=== PATIENT | female | born 1990 | race Caucasian/White ===

== ENCOUNTER 2024-07-31 14:52 | Outpatient (CLI) | payer MEDICAID, SELFPAY ==
--- NOTE | 2024-07-31 14:53 | US_ITS ---
FINAL REPORT CLINICAL HISTORY: umbilical hernia COMPARISON: None FINDINGS: ULTRASOUND ABDOMEN The liver is unremarkable. Spleen has a normal sonographic appearance. No abnormality of the gallbladder is seen. No biliary ductal dilatation is identified. Kidneys show no evidence of mass or obstruction. Pancreas is not well visualized. IVC and aorta are grossly unremarkable. There is no obvious fluid collection. There are 2 small periumbilical hernias, both appear to measure less than 1 cm and contain omental fat. The larger hernia sac measures up to 2 cm. IMPRESSION: Intra-abdominal solid organs are unremarkable. Small umbilical hernias. Reviewed, Interpreted and Dictated by Jose R Dotson MD Transcribed by Kimberly Lewis Authenticated and [facility]
== END 2024-07-31 23:59 | disposition home or self-care (01) ==
LOC: RAD 14:53
PROVIDERS: PCP Student in an Organized Health Care Education/Training Program; Visit Provider Student in an Organized Health Care Education/Training Program
DX: K42.9 Umbilical hernia without obstruction or gangrene (principal)
CPT/HCPCS: 76700

== ENCOUNTER 2024-09-20 14:10 | Outpatient (CLI) | payer MEDICAID, SELFPAY ==
[2024-09-20 18:21] LABS: Basophils # 0.1 K/mm3 (0-0.2); Basophils % 1.5 % (0.1-2.0); Eosinophils # 0.7 K/mm3 (0.0-0.4); Hematocrit 42.5 % (37.0-47.0); Hemoglobin 13.9 g/dL (12.2-16.2); Lymphocytes # 2.8 K/mm3 (0.7-4.5); Lymphocytes % 41.4 % (10-50); Mean Corpuscular HGB Conc 32.7 g/dL (31.8-35.4); Mean Corpuscular Hemoglobin 29.4 pg (27.0-31.2); Mean Corpuscular Volume 89.9 fl (81-99); Mean Platelet Volume 11.1 fl (7.4-10.4); Monocytes # 0.5 K/mm3 (0.1-1.0); Monocytes % 7.7 % (1.7-9.3); Neutrophils # 2.7 K/mm3 (1.8-7.8); Neutrophils % 39.1 % (37.0-80.0); Nucleated Red Blood Cells # 0 10^3/uL; Nucleated Red Blood Cells % 0 %; Platelet Count 335 K/mm3 (142-424); Red Blood Count 4.73 M/mm3 (4.20-5.40); Red Cell Distribution Width-SD 45.8 fL; White Blood Count 6.8 K/mm3 (4.8-10.8)
[2024-09-20 19:18] LABS: Chloride 104 mmol/L (98-107)
[2024-09-20 19:19] LABS: Albumin Level 4.1 g/dl (3.5-5.0); Potassium 4.2 mmoL/L (3.5-5.1); Sodium 139 mmol/L (136-145)
[2024-09-20 19:21] LABS: Blood Urea Nitrogen 6 mg/dl (7-17); Estimated Glomerular Filt Rate 113 ml/min (>60); GFR (African American) 137 ML/MIN (>60)
[2024-09-20 19:22] LABS: Alanine Aminotransferase 13 U/L (12-78); Albumin/Globulin Ratio 1.5 (1.1-1.8); Alkaline Phosphatase 76 U/L (38-126); Anion Gap 12.2 mEq/L (5-15); Aspartate Amino Transferase 23 U/L (14-36); Bilirubin,Total 0.5 mg/dl (0.2-1.3); Calcium 9.2 mg/dl (8.4-10.2); Carbon Dioxide 27 mmol/L (22.0-30.0); Chol/HDL Ratio 2.9 (1-3.5); Cholesterol 177 mg/dl (140-200); Globulin 2.8 g/dL (1.3-3.2); Glucose 99 mg/dl (74-100); HDL Cholesterol 62 mg/dl (40-60); Total Protein,Serum 6.9 g/dl (6.3-8.2); Triglycerides 112 mg/dl (30-150); VLDL Cholesterol 22 mg/dL (0-40)
[2024-09-20 19:33] LABS: Direct LDL Cholesterol 96.08 mg/dL (100-129)
[2024-09-20 19:52] LABS: Thyroid Stimulating Hormone 1.62 uIU/mL (0.465-4.68)
[2024-09-20 20:00] LABS: HIV Combo NEGATIVE (Negative)
[2024-09-20 20:11] LABS: Hepatitis C Ab Qual. W/ RFX NEGATIVE (Negative)
== END 2024-09-20 23:59 | disposition home or self-care (01) ==
LOC: LAB.DROPOF 09-21 09:40
PROVIDERS: PCP Family Medicine; Visit Provider Family Medicine
DX: K42.9 Umbilical hernia without obstruction or gangrene (principal); N23 Unspecified renal colic; D69.0 Allergic purpura; C53.9 Malignant neoplasm of cervix uteri, unspecified; Z87.442 Personal history of urinary calculi; Z11.59 Encounter for screening for other viral diseases
CPT/HCPCS: 80053; 80061; 82306; 84443; 85025; 86803; 87389

== ENCOUNTER 2024-11-29 14:52 | Outpatient (CLI) | payer MEDICAID, SELFPAY ==
[2024-11-29 15:41] LABS: Basophils # 0.2 K/mm3 (0-0.2); Eosinophils % 12.2 % (0.1-12.0); Hematocrit 41.2 % (37.0-47.0); Hemoglobin 14.2 g/dL (12.2-16.2); Immature Granulocytes # 0.02 10^3uL; Immature Granulocytes % 0.2 %; Lymphocytes # 3.1 K/mm3 (0.7-4.5); Lymphocytes % 37.7 % (10-50); Mean Corpuscular HGB Conc 34.5 g/dL (31.8-35.4); Mean Corpuscular Hemoglobin 29.8 pg (27.0-31.2); Mean Corpuscular Volume 86.6 fl (81-99); Mean Platelet Volume 10.6 fl (7.4-10.4); Monocytes # 0.6 K/mm3 (0.1-1.0); Monocytes % 7.8 % (1.7-9.3); Neutrophils # 3.3 K/mm3 (1.8-7.8); Neutrophils % 40.1 % (37.0-80.0); Nucleated Red Blood Cells # 0 10^3/uL; Nucleated Red Blood Cells % 0 %; Platelet Count 299 K/mm3 (142-424); Red Blood Count 4.76 M/mm3 (4.20-5.40); Red Cell Distribution Width 12.6 % (11.5-17.5); Red Cell Distribution Width-SD 39.9 fL; White Blood Count 8.2 K/mm3 (4.8-10.8)
[2024-11-29 16:10] LABS: Blood Urea Nitrogen 7 mg/dl (7-17); Calcium 9.9 mg/dl (8.4-10.2); Carbon Dioxide 25 mmol/L (22.0-30.0); Chloride 103 mmol/L (98-107); Estimated Glomerular Filt Rate 81 ml/min (>60); GFR (African American) 98 ML/MIN (>60); Glucose 68 mg/dl (74-100); Sodium 138 mmol/L (136-145)
== END 2024-11-29 23:59 | disposition home or self-care (01) ==
LOC: LAB 14:53
PROVIDERS: PCP Family Medicine; Visit Provider Surgery
DX: R10.9 Unspecified abdominal pain (principal)
CPT/HCPCS: 36415; 80048; 85025

== ENCOUNTER 2025-01-31 10:47 | Outpatient (CLI) | payer MEDICAID, SELFPAY ==
[2025-01-17 08:14] VITALS: BMI 21.6
[2025-01-31 07:31] VITALS: BMI 21.6
--- OUTSIDE RECORDS SUMMARY | 2025-01-31 10:52 | XMS_ITS | Clinical Summary ---
Author Organization [facility] Address [address] [place] [address] Phone Care Team Providers Care Finance Controller Name Role Phone Emily DOYLE, Regina Contreras Primary Care Physic kim Conditions or Problems Problem Name Problem Code Onset Date Status Entry Date Provider Comment Standard Description Annotate Body mass index (BMI) 24.0-24.9; adult Z68.24 (ICD-10-CM) Active Regina JEFFERSONM Body mass index [BMI] 24.0-24.9, adult Body mass index (BMI) 26.0-26.9; adult Z68.26 (ICD-10-CM) 12/21 Correction 12/21 Regina JEFFERSONM Body mass index [BMI] 26.0-26.9, adult Rh negative 712373334 (SNOMED CT) 09/13 Resolved 09/13 Regina [place] Emily CNM RhD negative Supervision high risk , second trimester 14473104 (SNOMED CT) 06/23 Resolved 06/27 Regina Servand[place]well [place] CNM High risk Vaginal discharge 294053213 (SNOMED CT) Active Regina Ben JEFFERSONM Vaginal discharge F/U Z39.2 (ICD-10-CM) 01/02 Active 01/02 Arlette Bradshaw MD Encounter for routine follow-up Body mass index (BMI) 26.0-26.9; adult Z68.26 (ICD-10-CM) 12/21 Removed 12/21 Regina Ben Diaz CNM Body mass index [BMI] 26.0-26.9, adult Body mass index (BMI) 26.0-26.9; adult Z68.26 (ICD-10-CM) 12/05 Correction 12/05 Regina Ben Diaz CNM Body mass index [BMI] 26.0-26.9, adult 36 weeks gestation of 33126529 (SNOMED CT) 12/05 Inactive 12/05 Arlette Bradshaw MD Gestation period, 36 weeks Body mass index (BMI) 26.0-26.9; adult Z68.26 (ICD-10-CM) 12/05 Removed 12/05 Arlette Bradshaw MD Body mass index [BMI] 26.0-26.9, adult Body mass index (BMI) 24.0-24.9; adult Z68.24 (ICD-10-CM) 11/01 Correction 11/01 Arlette Bradshaw MD Body mass index [BMI] 24.0-24.9, adult VAGINAL DISCHARGE 045550125 (SNOMED CT) 10/18 Resolved 10/18 Arlette Bradshaw MD Vaginal discharge 31 weeks gestation of 70382631 (SNOMED CT) 11/01 Inactive 11/01 Arlette Bradshaw MD Gestation period, 31 weeks Body mass index (BMI) 24.0-24.9; adult Z68.24 (ICD-10-CM) 11/01 Removed 11/01 Arlette Bradshaw MD Body mass index [BMI] 24.0-24.9, adult Body mass index (BMI) 24.0-24.9; adult Z68.24 (ICD-10-CM) 10/18 Correction 10/18 Arlette Brasdhaw MD Body mass index [BMI] 24.0-24.9, adult 29 weeks gestation of 32318154 (SNOMED CT) 10/18 Inactive 10/18 Arlette Bradshaw MD Gestation period, 29 weeks Body mass index (BMI) 24.0-24.9; adult Z68.24 (ICD-10-CM) 10/18 Removed 10/18 Arlette Bradshaw MD Body mass index [BMI] 24.0-24.9, adult Body mass index (BMI) 24.0-24.9; adult Z68.24 (ICD-10-CM) 10/11 Correction 10/11 Arlette Bradshaw MD Body mass index [BMI] 24.0-24.9, adult 24 weeks gestation of 480347998 (SNOMED CT) 09/13 Resolved 09/13 Arlette Bradshaw MD Gestation period, 24 weeks VAGINAL DISCHARGE 826371805 (SNOMED CT) 10/18 Removed 10/18 Arlette Bradshaw MD Vaginal discharge 28 weeks gestation of 23034074 (SNOMED CT) 10/11 Inactive 10/11 Arlette Bradshaw MD Gestation period, 28 weeks Body mass index (BMI) 24.0-24.9; adult Z68.24 (ICD-10-CM) 10/11 Removed 10/11 Arlette Bradshaw MD Body mass index [BMI] 24.0-24.9, adult Back pain 694205381 (SNOMED CT) 10/11 Active 10/11 Arlette Bradshaw MD Backache Body mass index (BMI) 24.0-24.9; adult Z68.24 (ICD-10-CM) 10/11 Correction 10/11 Arlette Bradshaw MD Body mass index [BMI] 24.0-24.9, adult Body mass index (BMI) 24.0-24.9; adult Z68.24 (ICD-10-CM) 10/11 Removed 10/11 Arlette Bradshaw MD Body mass index [BMI] 24.0-24.9, adult Body mass index (BMI) 23.0-23.9; adult Z68.23 (ICD-10-CM) 09/13 Correction 09/14 Arlette Bradshaw MD Body mass index [BMI] 23.0-23.9, adult Body mass index (BMI) 23.0-23.9; adult Z68.23 (ICD-10-CM) 09/13 Removed 09/14 Andrea Wright MD Body mass index [BMI] 23.0-23.9, adult Body mass index (BMI) 23.0-23.9; adult Z68.23 (ICD-10-CM) 09/13 Correction 09/13 Andrea Wright MD Body mass index [BMI] 23.0-23.9, adult Pelvic pain 03847901 (SNOMED CT) 02/19 Resolved 02/19 Andrea Wright MD Pain in pelvis Amenorrhea, secondary 69686531 (SNOMED CT) 07/16 Resolved 07/16 Andrea Wright MD Secondary physiologic amenorrhea Weight loss abnormal 855511566 (SNOMED CT) 07/16 Resolved 07/16 Andrea Wright MD Abnormal weight loss 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 609166518 (SNOMED CT) 08/12 Resolved 08/12 Andrea Wright MD Cervical intraepithelia l neoplasia grade III with severe dysplasia Abdominal pain, right upper quadrant 452463542 (SNOMED CT) 08/12 Resolved 08/12 Andrea Wright MD Right upper quadrant pain Dyspareunia 89937677 (SNOMED CT) 08/12 Resolved 08/12 Andrea Wright MD Dyspareunia Dysuria 21841002 (SNOMED CT) 10/26 Resolved 10/26 Andrea Wright MD Dysuria Amenorrhea 07187387 (SNOMED CT) 06/23 Inactive 06/23 Andrea Wright MD Amenorrhea 12 weeks gestation of 18555846 (SNOMED CT) 06/23 Resolved 06/23 Andrea Wright MD Gestation period, 12 weeks Encounter for screening for malformatio ns 622505350 (SNOMED CT) 08/07 Inactive 08/07 Andrea Wright MD screening 24 weeks gestation of 199372941 (SNOMED CT) 09/13 Removed 09/13 Andrea Wright MD Gestation period, 24 weeks Body mass index (BMI) 23.0-23.9; adult Z68.23 (ICD-10-CM) 09/13 Removed 09/13 Andrea Wright MD Body mass index [BMI] 23.0-23.9, adult Body mass index (BMI) 22.0-22.9; adult Z68.22 (ICD-10-CM) 08/16 Correction 08/16 Andrea Wright MD Body mass index [BMI] 22.0-22.9, adult IgA nephropathy 937665321 (SNOMED CT) 09/13 Active 09/13 Andrea Wright MD IgA nephropathy Rh negative 162895730 (SNOMED CT) 09/13 Removed 09/13 Andrea Wright MD RhD negative Rh factor negative, antepartum, second trimester 393345704 (SNOMED CT) 09/13 Active 09/13 Andrea Wright MD Rhesus isoimmunizatio n with problem Body mass index (BMI) 22.0-22.9; adult Z68.22 (ICD-10-CM) 08/16 Removed 08/16 Yung Garcias APRN Body mass index [BMI] 22.0-22.9, adult Body mass index (BMI) 22.0-22.9; adult Z68.22 (ICD-10-CM) 08/07 Correction 08/07 Yung Garcias APRN Body mass index [BMI] 22.0-22.9, adult Allergic rhinitis 98216461 (SNOMED CT) 08/16 Active 08/16 Yung Garcias APRN Allergic rhinitis Body mass index (BMI) 22.0-22.9; adult Z68.22 (ICD-10-CM) 08/07 Removed 08/07 Regina Diaz CNM Body mass index [BMI] 22.0-22.9, adult Body mass index (BMI) 21.0-21.9; adult Z68.21 (ICD-10-CM) 06/23 Correction 06/26 Regina Diaz CNM Body mass index [BMI] 21.0-21.9, adult Encounter for screening for malformatio ns 859938877 (SNOMED CT) 08/07 Removed 08/07 Regina Diaz CNM screening Supervision high risk , second trimester 93849118 (SNOMED CT) 06/23 Removed 06/27 Andrea Wright MD High risk Body mass index (BMI) 21.0-21.9; adult Z68.21 (ICD-10-CM) 06/23 Removed 06/26 Andrea Wright MD Body mass index [BMI] 21.0-21.9, adult Body mass index (BMI) 21.0-21.9; adult Z68.21 (ICD-10-CM) 06/23 Correction 06/23 Andrea Wright MD Body mass index [BMI] 21.0-21.9, adult Body mass index (BMI) 21.0-21.9; adult Z68.21 (ICD-10-CM) 06/23 Removed 06/23 Andrea Wright MD Body mass index [BMI] 21.0-21.9, adult Body mass index (BMI) 19 or less; adult Z68.1 (ICD-10-CM) 06/16 Correction 06/16 Andrea Wright MD Body mass index [BMI] 19.9 or less, adult 12 weeks gestation of 57841090 (SNOMED CT) 06/23 Removed 06/23 Andrea Wright MD Gestation period, 12 weeks Amenorrhea 04056587 (SNOMED CT) 06/23 Removed 06/23 Kimberly Brown RN Amenorrhea Practice Managers well woman exam 394601421 (SNOMED CT) 10/26 Inactive 10/26 Deysi Flynn APRN Well woman health examination Dysuria 09341894 (SNOMED CT) 10/26 Removed 10/26 Deysi Flynn APRN Dysuria Body mass index (BMI) 19 or less; adult Z68.1 (ICD-10-CM) 06/16 Removed 06/16 Jennifer Skinner APRN Body mass index [BMI] 19.9 or less, adult Body mass index (BMI) 19 or less; adult Z68.1 (ICD-10-CM) 09/29 Correction 09/30 Jennifer Susanne SENIOR NET ARCHITECT Body mass index [BMI] 19.9 or less, adult URI - viral 281312165 (SNOMED CT) 06/16 Inactive 06/16 Jennifer Skinner SENIOR NET ARCHITECT Viral upper respiratory tract infection Body mass index (BMI) 19 or less; adult Z68.1 (ICD-10-CM) 09/29 Removed 09/30 Mikala Gibbs SENIOR NET ARCHITECT Body mass index [BMI] 19.9 or less, adult Depression 50942849 (SNOMED CT) 09/29 Active 09/29 Mikala Gibbs SENIOR NET ARCHITECT Depressive disorder S/P LEEP 14778390 (SNOMED CT) 01/04 Active 01/04 Alisha Schofield SENIOR NET ARCHITECT Loop electrosurgica l excision procedure Uvular hypertrophy 02614267898 9106 (SNOMED CT) 12/30 Active 12/30 Alisha Schofield SENIOR NET ARCHITECT Uvular hypertrophy Pharyngitis , acute 663122122 (SNOMED CT) 12/30 Inactive 12/30 Alisha Schofield SENIOR NET ARCHITECT Acute pharyngitis Dyspareunia 78043268 (SNOMED CT) 08/12 Removed 08/12 Andrea Wright MD Dyspareunia Abdominal pain, right upper quadrant 939455617 (SNOMED CT) 08/12 Removed 08/12 Andrea Wright MD Right upper quadrant pain 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 002344947 (SNOMED CT) 08/12 Removed 08/12 Andrea Wright MD Cervical intraepithelia l neoplasia grade III with severe dysplasia Amenorrhea, secondary 27787376 (SNOMED CT) 07/16 Removed 07/16 Andrea Wright MD Secondary physiologic amenorrhea Weight loss abnormal 310636072 (SNOMED CT) 07/16 Removed 07/16 Andrea Wright MD Abnormal weight loss ASCUS with positive high risk HPV 800178750 (SNOMED CT) 07/16 Active 07/16 Andrea Wright MD Atypical squamous cells of undetermined significance on cervical Papanicolaou smear DENTAL CARIES EXTENDING INTO PULP 7053471 (SNOMED CT) 06/24 Inactive 06/24 Olu Hanson DMD Complex dental caries Pelvic pain 42370761 (SNOMED CT) 02/19 Removed 02/19 Ousmane Morillo MD Pain in pelvis AMPOULE FILLER EXAM 18107141 (SNOMED CT) 02/19 Inactive 02/19 Ousmane Morillo MD Gynecologic examination Breast mass 55950105 (SNOMED CT) 02/19 Active 02/19 Ousmane Morillo MD Breast lump CARPAL TUNNEL 86091981 (SNOMED CT) 12/29 Active 12/29 Ana Solomon MD Carpal tunnel syndrome CERUMEN IMPACTION 46326993 (SNOMED CT) 07/25 Resolved 07/25 Ana Solomon MD Impacted cerumen CERUMEN IMPACTION 48441311 (SNOMED CT) 07/25 Removed 07/25 Ruma B Juan SENIOR NET ARCHITECT Impacted cerumen UTI 74421299 (SNOMED CT) 07/25 Inactive 07/25 Ruma B Hill SENIOR NET ARCHITECT Urinary tract infectious disease IGA NEPHROPATHY 109809773 (SNOMED CT) 07/25 Active 07/25 Ruma B Hill SENIOR NET ARCHITECT IgA nephropathy Medications Medication Instructions Start Date Stop Date Generic Name NDC Provider METRONIDAZOLE 500 MG TABS TAKE 1 TABLET BY MOUTH 2 TIMES A DAY FOR 7 DAYS METRONIDAZOLE 47648784888 Regina Contreras [place] CNM DIFLUCAN 150 MG TABS TAKE 1 TABLET BY MOUTH 1 TIME A DAY and repeat in 7 days. FLUCONAZOLE 69065042675 Regina Contreras Emily CNM DOXYCYCLINE MONOHYDRATE 100 MG TABS TAKE 1 TABLET BY MOUTH TWICE A DAY FOR 10 DAYS DOXYCYCLINE MONOHYDRATE 24810895954 Regina Harrislin CNM IBUPROFEN 800 MG TABS TAKE 1 TABLET THREE TIMES DAILY NEEDED FOR PAIN IBUPROFEN 47082404850 Regina Harrislin CNM METRONIDAZOLE 500 MG TABS TAKE 1 TABLET BY MOUTH 2 TIMES A DAY FOR 7 DAYS 01/13 METRONIDAZOLE 39071744875 Arlette Bradshaw MD PERCOCET 5-325 MG TABS TAKE 1 BY MOUTH EVERY 4-6 HOURS NEEDED FOR PAIN 01/12 OXYCODONE-ACETAMI NOPHEN 61827143501 Arlette Bradshaw MD KEFLEX 500 MG ORAL CAPSULE TAKE 1 CAPSULE BY MOUTH 2 TIMES A DAY FOR 7 DAYS 01/09 CEPHALEXIN 14880952551 Arlette Bradshaw MD PRILOSEC OTC 20 MG TBEC one by mouth every day 02/06 OMEPRAZOLE MAGNESIUM 86718268051 Arlette Bradshaw MD CHILDRENS ASPIRIN 81 MG CHEW one by mouth every day 03/04 ASPIRIN 40948230260 Arlette Bradshaw MD CYCLOBENZAPRINE HCL 10 MG TABS 1 tablet every 8 hours as needed for backache CYCLOBENZAPRINE HCL 06336319143 Andrea Wright MD LORATADINE 10 MG TABS TAKE 1 TABLET BY MOUTH 1 TIME A DAY NEEDED FOR ALLERGIES LORATADINE 61698030069 Yung Garcias APRN FLONASE ALLERGY RELIEF 50 MCG/ACT SUSP USE 1 SPRAYS IN EACH NOSTRIL 1 TIME A DAY FLUTICASONE PROPIONATE 15907512917 Yung Garcias APRN COLACE 100 MG CAPS TAKE 1 CAPSULE BY MOUTH 2 TIMES A DAY NEEDED FOR CONSTIPATION DOCUSATE SODIUM 23360526772 Regina Diaz CNM PLUS 27-1 MG TABS TAKE 1 TABLET BY MOUTH ONCE A DAY OR COVERED EQUIVALENT 08/07 VIT-FE FUMARATE-FA 94267885080 Regina Diaz CNM ZOLOFT 50 MG TABS TAKE 1 TABLET BY MOUTH ONCE A DAY 06/23 SERTRALINE HCL 30277473005 Kimberly Brown RN CIPROFLOXACIN HCL 500 MG TABS TAKE 1 TABLET BY MOUTH TWICE A DAY FOR 10 DAYS 11/08 CIPROFLOXACIN HCL 75982689872 Deysi Flynn APRN BACTRIM DS 800-160 MG TABS TAKE 1 TABLET BY MOUTH 2 TIMES A DAY FOR 10 DAYS 11/05 SULFAMETHOXAZOLE- TRIMETHOPRIM 54865146804 Deysi Flynn SENIOR NET ARCHITECT BACTRIM DS 800-160 MG TABS TAKE 1 TABLET BY MOUTH 2 TIMES A DAY FOR 10 DAYS 11/05 SULFAMETHOXAZOLE- TRIMETHOPRIM 51126578110 Deysi Flynn SENIOR NET ARCHITECT ZOLOFT 50 MG TABS TAKE 1 TABLET BY MOUTH ONCE A DAY SERTRALINE HCL 24074936332 Grecia Zapata APRN B & B CARPAL TUNNEL BRACE USE ON RT. HAND 06/29 ELASTIC BANDAGES & SUPPORTS 77991588801 Grecia Zapata SENIOR NET ARCHITECT LORATADINE 10 MG TABS TAKE 1 TABLET BY MOUTH 1 TIME A DAY NEEDED FOR ALLERGIES 06/29 LORATADINE 89032145336 Grecia Zapata SENIOR NET ARCHITECT LORATADINE 10 MG TABS TAKE 1 TABLET BY MOUTH 1 TIME A DAY NEEDED FOR ALLERGIES LORATADINE 10294450319 Mikala Gibbs APRN ZITHROMAX Z-ERIKA 250 MG TABS TAKE 2 TABLETS BY MOUTH ON DAY 1 THEN 1 TABLET BY MOUTH DAILY FOR 4 DAYS (DAY 2-5) 10/04 AZITHROMYCIN 87403362533 Mikala Gibbs APRN AZITHROMYCIN 250 MG TABS TAKE 2 TABLETS BY MOUTH DAY 1 THEN 1 TABLET EVERYDAY DAY 2 TO 5 01/04 AZITHROMYCIN 44705730554 Alisha Schofield APRN AMOXICILLIN 500 MG TABS TAKE 1 TABLET EVERY 8 HOURS 07/04 AMOXICILLIN 80653446716 Olu Hanson DMD B & B CARPAL TUNNEL BRACE USE ON RT. HAND [employer] 42089568844 Ana Solomon MD CIPROFLOXACIN HCL 500 MG TABS TAKE 1 TABLET BY MOUTH 2 TIMES A DAY 12/29 CIPROFLOXACIN HCL 68330992925 nAa Solomon MD CIPROFLOXACIN HCL 500 MG TABS TAKE 1 TABLET BY MOUTH 2 TIMES A DAY CIPROFLOXACIN HCL 71575341131 Ruma Martinez APRN Medications Administered No information available. Allergies, Adverse Reactions, Alerts Allergy Name Reaction Description Start Date Severity Statu s Provider IBUPROFEN Critical Active Grecia mtz SENIOR NET ARCHITECT Results Date Name Value Unit Range Flag Description Office Visit: COLPO rm 2 HCG PREG UR neg Choriogon adotropin ( test) [Presence] in Urine Lab Report: COMPREHENSIVE ME TABOLIC PANEL, CBC (H/H, RBC, INDICES, WBC, ... T4, FREE 0.9 ng/dL 0.8-1.8 N Thyroxine (T 4) free [Mass/volume] in Serum or Plasma T3 TOTAL 1.05 ng/mL Units converted. See lab report for original value. N Triiodothyronine (T3) [Mass/volume] in Serum or Plasma Office Visit: PHARYNGITIS DE PRESSION RAPID STREP negative Streptoc occus pyogenes DNA [Presence] in Throat by CORBY with non-probe detection Lab Report: CBC WITH DIFF EGFR NOT AFA 121 mL/min/ 1.73m2 >=60 Glomerular filtration rate/1.73 sq M.predicted among non-blacks [Volume Rate/Area] in Serum, Plasma or Blood by Creatinine-based formula (MDRD) ANION GAP 17 mmol/L 7-16 H Anion gap 4 in Serum or Plasma CO2 TOTAL 20 mmol/L 22-29 L carbon diox farzana, serum, total CHLORIDE 107 mmol/L 98-107 Chloride [Moles/volume] in Serum or Plasma ALCOHOL, BLD 112 mg/dL <=10 H alcohol, blood HCG SERUM Negative m[iU]/m L human chorionic gonadotropin, total, serum CREATININE U 23.0 MG/DL Creatini ne [Mass/volume] in Urine COCAINE SCRN Presumptive Pos Cutoff 150 A cocaine metaboli c screen OPIATES UR Absent Cutoff 10 Opiates [Presence] in Urine BASOPH COUNT 0.1 X10(3)/MCL 10*3/mm 3 0.0-0.2 Basophils [#/volume] in Blood by Manual count EOS COUNT 0.3 X10(3)/MCL 10*3/mm 3 0.0-0.5 eosinophil count, blood MONOSCT AUTO 0.6 X10(3)/MCL 10*3/uL 0.0-1.3 M onocytes [#/volume] in Blood by Automated count LYMPH COUNT 2.6 X10(3)/MCL 10*3/mm 3 0.6-4.8 lymphocyte count, blood NEUTRO COUNT 3.5 X10(3)/MCL 10*3/mm 3 1.8-7.7 neutrophil count, blood % BASO AUTO 0.8 % basophils as percent of blood leukocytes, automated count EOSINOPHIL % 3.7 % Eosinoph ils/100 leukocytes in Blood by Manual count LYMPHCT AUTO 36.9 % 10*3/mm 3 Lymphocytes [#/volume] in Blood by Automated count PLATELETS 327 X10(3)/MCL 10*3/mm 3 144-423 Platelets [#/volume] in Blood by Automated count MCHC 32.8 G/DL 32.1-35.3 MCHC [Mass/ volume] by Automated count RBC 5.13 X10(6)/MCL 10*6/mm 3 3.80-5.10 H Erythrocytes [#/volume] in Blood by Automated count WBC 7.1 X10(3)/MCL 10*3/mm 3 4.0-11.0 Leukocytes [#/volume] in Blood by Automated count Office Visit: AMPOULE FILLER EXAM/PAP APPEARANCE U hazy Appearan ce of Urine UA COLOR lt. yellow Color of Urine Lab Report: CULTURE, URINE, ROUTINE , CULTURE, URINE, ROUTINE TOBRAMYCIN 8I ug/mL tobramycin serum, random Office Visit: new ob intake rm 6 PREG TST URN positive beta HC G, urine, semiquantitative HSV GENITAL no Herpes si mplex virus identified in Genital specimen by Organism specific culture Replaced Document: DRUG LAXMI TOR, PANEL 1, SCREEN, URINE, CULTURE, URINE, ROUTINE PHENCYCLIDIN NEGATIVE ng/mL <25 N Phencyc lidine [Presence] in Urine OXYCODONE NEGATIVE <100 N Oxycodone urine screening METHADONEURN NEGATIVE <100 N Methado ne [Presence] in Urine by Screen method COCAINE UR NEGATIVE <150 N cocaine, urine MARIJUANAURN POSITIVE <20 A Marijua na, cannabinoid screen Urine BENZODIAZ UR NEGATIVE <100 N Benzodi azepines [Presence] in Urine AMPHETAMI UR NEGATIVE <500 N Ampheta mines [Presence] in Urine Replaced Document: OBSTETRIC PANEL, OBSTETRIC PANEL, OBSTETRIC PANEL, OBSTETRIC ... HGBA1C 5.1 % OF TOTAL HGB % <5.7 N Hemoglobin A1c/Hemoglobin, total in Blood - % SGPT (ALT) 10 U/L 6-29 N Alanine aminotransferase [Enzymatic activity/volume] in Serum or Plasma SGOT (AST) 14 U/L 10-30 N Aspartate aminotransferase [Enzymatic activity/volume] in Serum or Plasma ALK PHOS 58 U/L 33-115 N Alkaline brittney sphatase [Enzymatic activity/volume] in Blood BILI TOTAL 0.4 mg/dL 0.2-1.2 N Bilirubin. total [Mass/volume] in Serum or Plasma A/G RATIO 1.6 (calc) 1.0-2.5 N Albumin/ Globulin [Mass Ratio] in Serum or Plasma GLOBULIN TOT 2.7 G/DL (CALC) g/dL 1.9-3.7 N Globulin [Mass/volume] in Serum ALBUMIN EOP 4.2 g/dL 3.6-5.1 N Albumin [Mass/volume] in Serum or Plasma by Electrophoresis PROTEIN, TOT 6.9 g/dL 6.1-8.1 N Protein [Mass/volume] in Serum or Plasma RUBELLA IGG 4.11 N Rubella v irus IgG Ab [Units/volume] in Serum ABO BLD GRP O ABO blood group ANTIBODY SCR NO ANTIBODIES DETECTED N antibody screen, serum BASO % MANU 1.0 % N basophils as percent of blood leukocytes, manual count EOS % MANU 2.1 % N eosinophil s as percent of blood leukocytes, manual count MONOCYTE % 7.2 % N Monocytes/ 100 leukocytes in Blood by Automated count LYMPH% P BLD 25.3 % N lymphocy katie as percent of blood leukocytes PMN % 64.4 % N Neutrophils/1 00 leukocytes in Blood by Automated count ABS BASOS 100 {Cells} /uL 0-200 N Basophils [#/volume] in Blood ABS EOS 210 {Cells} /uL 15-500 N Eosinophils [#/volume] in Blood ABS MONOS 720 {Cells} /uL 200-950 N Monocytes [#/volume] in Blood ABSLYMPHCT 2530 {Cells} /uL 850-3900 N Lymphocytes [#/volume] in Blood ABS NEUTROPH 6440 CELLS/UL 10*3/uL 9602-8398 N Neutrophils [#/volume] in Blood Lab Report: PROTEIN, TOTAL W /CREAT, 24 HOUR URINE PROT 24H URN 216 MG/24 H mg/24h <150 H prot ein, total, urine, 24 hour Lab Report: BASIC METABOLIC PANEL, GLUCOSE TOLERANCE TEST, GEST, 3 SPEC ... RPR NON-REACTIVE NON-REACTI N Reagi n Ab [Units/volume] in Serum by VDRL HIV AB NON-REACTIVE NON-REACTI N HIV 1 p51 Ab [Presence] in Serum by Immunoblot ROBERT HOMO PAT NEGATIVE NEGATIVE N ROBERT (a ntinuclear antibody) pattern, homogeneous MPV 9.3 fL 7.5-12.5 N Platelet arleth n volume [Entitic volume] in Blood by Carola PLATELETK/UL 348 THOUSAND/UL 10*3/uL 140-400 N platelet count RDW 12.9 % 11.0-15.0 N Erythrocyte distribution width [Ratio] by Automated count OL-MCHC 34.1 g/dL 32.0-36.0 N mean corpus cular hemoglobin concentration, rbc MCH 31.8 pg 27.0-33.0 N MCH [Entiti c mass] by Automated count MCV 93.2 fL 80.0-100.0 N MCV [Entit ic volume] by Automated count HCT 38.4 % 35.0-45.0 N Hematocrit [Volume Fraction] of Blood by Automated count RBC M/UL 4.12 MILLION/UL 10*6/uL 3.80-5.10 N red blood count WBC CT BLOOD 10.5 10*3/uL 3.8-10.8 N leukocy te count, blood TSH 2.07 u[iU]/m L N Thyrotropin [Units/volume] in Serum or Plasma URIC ACID 3.5 mg/dL 2.5-7.0 N Urate [Mass /volume] in Serum or Plasma GTT 2H 110 mg/dL <153 N blood glucose , 2 hours after glucose tolerance test GTT 1H 155 mg/dL <180 N blood glucose , 60 minutes after glucose tolerance test GTT FASTING 87 mg/dL 65-91 N glucose t olerance test with glucose, fasting CALCIUM 8.8 mg/dL 8.6-10.2 N Calcium [Moles/volume] in Serum or Plasma CO2 24 mmol/L 20-32 N Carbon dioxid e, total [Moles/volume] in Venous blood CHLORIDE BLD 104 mmol/L 98-110 N chloride , blood POTASSIUM 3.4 mmol/L 3.5-5.3 L Potassium [Moles/volume] in Serum or Plasma SODIUM 136 mmol/L 135-146 N Sodium [Moles/volume] in Serum or Plasma BUN/CREAT NOT APPLICABLE (calc) 6-22 Urea nitrogen/Creatinine [Mass Ratio] in Serum or Plasma EGFR IF AFA 142 mL/min/ 1.73m2 >OR = 60 N Glomerular filtration rate/1.73 sq M.predicted among blacks [Volume Rate/Area] in Serum, Plasma or Blood by Creatinine-based formula (MDRD) EGFR 122 mL/min/ 1.73m2 >OR = 60 N Glomerular filtration rate/1.73 sq M.predicted [Volume Rate/Area] in Serum, Plasma or Blood by Creatinine-based formula (MDRD) CREATININE 0.59 mg/dL 0.50-1.10 N Creatini ne [Mass/volume] in Serum or Plasma BUN 9 mg/dL 7-25 N Urea nitrogen [Mass/volume] in Serum or Plasma GLUCOSE SER 152 mg/dL 65-99 H Glucose [Mass/volume] in Serum or Plasma Lab Report: CULTURE, URINE, ROUTINE URINE CULT See Note Below Venkata teria identified in Urine by Culture Office Visit: OB Visit rm 5 PH URINE 6.5 pH of Urine by Test strip SPEC GR URIN >1.030 Specific gravity of Urine by Test strip GLUCOSE, URN negative Glucose [Mass/volume] in Urine by Test strip BILIRUBIN UR negative Bilirub in.total [Presence] in Urine by Test strip KETONES URN negative Ketones [Mass/volume] in Urine by Test strip BLOOD UR DIP negative blood i n urine (hemoglobin) by dipstick PROTEIN, URN trace protein, urine, semiquantitative (dipstick) UROBILINOGEN 0.2 Urobilin ogen [Presence] in Urine by Test strip NITRITE URN negative Nitrite [Presence] in Urine by Test strip WBC DIPSTK U trace Leukocyt e esterase [Presence] in Urine by Test strip HGB 14 g/dL Hemoglobin [Mass/volume] in Blood Lab Report: STREPTOCOCCUS, G ROUP B CULTURE STREP B CULT See Note Below S treptococcus agalactiae [Presence] in Specimen by Organism specific culture Lab Report: ABORh ABO/RH O NEG blood type wi th RH factor Lab Report: Antibody Screen IgG IGG SERUM Positive mg/dL IgG, serum Lab Report: THINPREP TIS PAP AND HPV mRNA E6/E7, CHLAMYDIA/N.GONORRHOEAE ... DNAPROBECAND NOT DETECTED NOT DETECTED N Lucero guilliermondii DNA [Presence] in Specimen by CORBY with probe detection VAGCULTGARDN DETECTED NOT DETECTED A Vaginal Culture Gardnerella TRICHO WET NOT DETECTED NOT DETECTED N Trichomonas vaginalis [Presence] in Genital specimen by Wet preparation HPV RESULT Not Detected Not Detected N Human papilloma virus 16 and 18 and 31+33+35+39+45+51+52 +56+58+59+66+68 DNA [Interpretation] in Cervix Lab Report: Acute Hepatitis Panel HEP C AB Non-Reactive Non-Reacti ve Hepatitis C virus Ab [Presence] in Serum ANTI-HAV IGM Non-Reactive Non-Reacti ve Hepatitis A virus IgM Ab [Presence] in Serum or Plasma by Immunoassay HB CORE IGM Non-Reactive Non-Reacti ve Hepatitis B virus core IgM Ab [Units/volume] in Serum by Radioimmunoassay (CAROL) HBSAG Non-Reactive Non-Reacti ve Hepatitis B virus surface Ag [Presence] in Serum by Radioimmunoassay (CAROL) Lab Report: Antinuclear Anti body Screen ROBERT TITER Negative Negative antinucle ar antibody, titer Plan of Care Type Date Detail Referral [facility] [employer], [address] [facility] [address], [place], [address] Referral excluded fr om report: Referral Real [facility], [address] [place] [address], [id number] Referral excluded fr om report: Referral [facility], [address] [place] [address], [id number] Referral excluded fr om report: Referral ENT & Allergy Gr [facility], [address], [place], [address] Referral excluded fr om report: Referral LIMO DRIVER Referral MD Micah Lara, [address], [place], [address] Referral excluded fr om report: Referral LIMO DRIVER Referral MD Micah Lara, [address], [place], [address] Referral Orthopedic Refer [facility] ([facility] [address] [place], [address] Referral excluded fr om report: Referral Orthopedic Refer [facility] ([facility] [address] [place], [address] Referral Kidney and Hyper tension Referral [facility] Kidney Disease Order Checker Packer Processer, [address], [place], [address] Pending order Hemoglobin 89129 Pending order Urine Dip Auto 8 1003 Pending order Urine Dip Auto 8 1003 Pending order T1 Urine Culture Pending order T1 G.C. Chlamydi a Pending order T2 BV Yeast Tric h Culture (Affirm) Pending order T2 24 HR Urine f or Protein & Creatinine w/ Clearance Pending Order exclud ed from report: Pending order Rhogam Pending Order exclud ed from report: Pending order Antibody Screen Pending Order exclud ed from report: Pending order Other Pending Order exclud ed from report: Pending order T2 24 HR Urine f or Protein & Creatinine w/ Clearance Pending order Test 8 1025 Pending order Urine Dip Auto 8 1003 Pending order T1 CMP Pending order T1 HIV 1/2 Ag & Ab 4th gen -consent required Pending order T1 Pane l (Obstetric Panel) Pending order T1 Hep C Ab Pending order T1 HGBA1c Pending order T1 Uric Acid Pending order T1 TSH reflex to free T4 Pending order T1 Urine Drug Sc reen w/o Confirmation Pending order T1 Urine Culture Pending order T1 G.C. Chlamydi a Pending order Urine Dip Auto 8 1003 Pending order T1 Urine Culture Pending order T1 ThinPrep w HR HPV/GC/Chlamydia mRNA E6/E7 Pending order T2 BV Yeast Tric h Culture (Affirm) Pending order Test 8 1025 Pending order Strep Screen 878 80 Pending order Strep Screen 878 80 Pending order Throat Culture Pending order Medication Recon ciliation Pending order Ultrasound Gall Bladder Pending order Ultrasound Pelvi s Pending order Medication Recon ciliation Pending order TSH to Free T-4 Pending order T3 Total Pending order CMP Pending order CBC no diff Pending order Free T4 Pending order Colposcopy w Bx and Currettage 00502 Pending order BV Yeast Trich C ulture (Affirm) Pending order Medication Recon ciliation Pending order Test 8 1025 Pending order Ultrasound Pelvi s Pending order Ultrasound Pelvi s Pending Order exclud ed from report: Pending order Ultrasound Breas t Pending order Mammogram Diagno stic Pending order Ultrasound Pelvi s Pending order Injection(s) Ord ered Pending order ThinPrep Pap w r eflex HR HPV/GC/Chlamydia mRNA E6/E7 Pending order BV Yeast Trich C ulture (Affirm) Pending order Rocephin per 250 mg Pending order Injection(s) Ord ered Pending order EMG Electromyogr aphy Pending order Urine Dip Auto 8 1003 Pending order Ultrasound Renal Pending order Urine Culture Pending order Ultrasound Renal Pending Order exclud ed from report: Patient education Medications Patient education Medications Patient education Patient Educat ion Given Patient education Medications Patient education Patient Educat ion Given Patient education Medications Patient education Medications Patient education Patient Educat ion Given Patient education Medications Patient education Patient Educat ion Given Procedures Code Procedure Name Date Entry Date [facility] 59892 T2 BV Yeast Trich Culture (Affirm) [facility] 57650 T1 ThinPrep w HR HPV /GC/Chlamydia mRNA E6/E7 CPT-3075F Most recent systolic blood pressure 130-139 mm Hg CPT-3078F Most recent diastoli c blood pressure <80 mm Hg [id number] Medication Reconciliation [facility] 23519 T2 BV Yeast Trich Culture (Affirm) 01/02 [facility] 13455 T1 G.C. Chlamydia CPT-3074F Most recent systolic blood pressure <130 mm Hg CPT-3074F Most recent systolic blood pressure <130 mm Hg CPT-1159F Medication list docu mented in medical record CPT-1160F Review of all medica tions by a prescribing practitioner [id number] Current every day smoker 20 24/12/28 SCT-[id number] Smoking cessation education SCT-[id number] Giving encouragement to exercise SCT-[id number] Dietary management education/guidance/counseling CPT-3075F Most recent systolic blood pressure 130-139 mm Hg [facility] 87608 T1 G.C. Chlamydia [facility] 5617 T1 Group B Strep SCT-[id number] Medication Reconciliation CPT-43644 Hemoglobin 93552 CPT-40578 Urine Dip Auto 18140 OB US GEN Ultrasound BPP NST W 28 BPP with NST 1 Weekly to SCT-[id number] Medication Reconciliation SCT-[id number] Medication Reconciliation CPT-3074F Most recent systolic blood pressure <130 mm Hg CPT-3078F Most recent diastoli c blood pressure <80 mm Hg KID HTN Referral [facility] [place] CPT-15442 Urine Dip Auto 12725 [facility] 395 T1 Urine Culture [facility] 66313 T1 G.C. Chlamydia [facility] 82633 T2 BV Yeast Trich Culture (Affirm) 10/18 [facility] 1759 T1 CBC no diff [facility] 35660 T1 GTT 3 Specimen [facility] 58615 T1 HIV 1/2 Ag & Ab 4 th gen -consent required [facility] 73045 T1 RPR w/ reflex to titer & confirmation [facility] 249 T2 ROBERT CPT-3074F Most recent systolic blood pressure <130 mm Hg CPT-3078F Most recent diastoli c blood pressure <80 mm Hg [facility] 92322 T1 BMP [facility] 905 T1 Uric Acid SCT-[id number] Medication Reconciliation [facility] 757 & 7943 T2 24 HR Urine for P rotein & Creatinine w/ Clearance [facility] 01170 T1 CMP [facility] 05828 T1 TSH reflex to free T4 202 Rhogam SES Rhogam CPT-96346 Antibody Screen SCT-[id number] Medication Reconciliation CPT-3074F Most recent systolic blood pressure <130 mm Hg CPT-3079F Most recent diastoli c blood pressure 80-89 mm Hg [facility] 757 & 7943 T2 24 HR Urine for P rotein & Creatinine w/ Clearance CL Cervical Length One Time 202 CPT-3074F Most recent systolic blood pressure <130 mm Hg CPT-3078F Most recent diastoli c blood pressure <80 mm Hg OB US GEN Ultrasound CPT-3074F Most recent systolic blood pressure <130 mm Hg CPT-3079F Most recent diastoli c blood pressure 80-89 mm Hg CPT-70256 Test 92530 CPT-90255 Urine Dip Auto 04519 SCT-[id number] Medication Reconciliation CPT-3074F Most recent systolic blood pressure <130 mm Hg CPT-3078F Most recent diastoli c blood pressure <80 mm Hg [facility] 28740 T1 Panel (Obstetric Panel) 06/23 [facility] 76300 T1 CMP [facility] 34282 T1 HIV 1/2 Ag & Ab 4 th gen -consent required [facility] 8472 T1 Hep C Ab [facility] 496 T1 HGBA1c [facility] 905 T1 Uric Acid [facility] 01440 T1 TSH reflex to free T4 202 [facility] 29693 T1 Urine Drug Screen w/o Confirmation 202 [facility] 395 T1 Urine Culture [facility] 59755 T1 G.C. Chlamydia CPT-3075F Most recent systolic blood pressure 130-139 mm Hg SCT-[id number] Medication Reconciliation SCT-861533833 Current every day smoker 23/10/21 SCT-[id number] Smoking cessation education SCT-885668077 Smoking cessation education CPT-61135 Urine Dip Auto 21238 [facility] 55330 T2 BV Yeast Trich Culture (Affirm) 10/26 [facility] 80905 T1 ThinPrep w HR HPV /GC/Chlamydia mRNA E6/E7 [facility] 395 T1 Urine Culture CPT-42993 Test 27070 CPT-3074F Most recent systolic blood pressure <130 mm Hg CPT-3078F Most recent diastoli c blood pressure <80 mm Hg SCT-[id number] Medication Reconciliation SCT-[id number] Medication Reconciliation [facility] 06/29 SCT-[id number] SNOMED-CT: [id number] Smoking Cessation Counseling SCT-[id number] SNOMED-CT: [id number] 158257 Current Medications Documented CPT-3074F Most recent systolic blood pressure <130 mm Hg CPT-3079F Most recent diastoli c blood pressure 80-89 mm Hg [facility] 06/29 CPT-3074F Most recent systolic blood pressure <130 mm Hg CPT-3078F Most recent diastoli c blood pressure <80 mm Hg SCT-[id number] Medication Reconciliation CPT-40947 Strep Screen 50809 5 CPT-70509 Strep Screen 32996 6 [facility] 2 SCT-[id number] Medication Reconciliation 394 [facility] Test # Throat Culture 6 LIMO DRIVER LIMO DRIVER Referral Micah Pearson MD US PELVIS KAT Ultrasound Pelvis 8 US GB [facility] Ultrasound Gall Bladder 2015 SCT-[id number] Medication Reconciliation CPT-06460 Colposcopy w Bx and Currettage 78952 2015 SCT-[id number] Medication Reconciliation CPT-67792 Test 52148 38981 [facility] Test # TSH to Free T-4 07/16 CPT-65346 T3 Total 23572 [facility] Test # CMP 9 [facility]# 1759 CBC no diff [facility]# 866 Free T4 54335 [facility] Test # BV Yeast Trich Culture (Affirm) 201 11/06/08 US PELVIS KAT Ultrasound Pelvis 5 03397 [facility] Test # BV Yeast Trich Culture (Affirm) 201 10/13/14 CPT-J0696 Rocephin per 250 mg INJORDER Injection(s) Ordered US PELVIS KAT Ultrasound Pelvis 5 Mammo DX KAT Mammogram Diagnostic [facility]# 71594 ThinPrep Pap w refle x HR HPV/GC/Chlamydia mRNA E6/E7 US BREAST [facility] Ultrasound Breast 5 INJORDER Injection(s) Ordered ORTHO COMMON Orthopedic Referral [facility] 20 20/03/22 EMG KAT EMG Electromyography CPT-05287 Urine Dip Auto 34825 KID HTN Referral Kidney and Hypertens ion Referral [facility] [place] 395 [facility] Test # Urine Culture US Renal [facility] Ultrasound Renal Vital Signs Date Name Value Unit Description BMI (Body Mass Index) 24.55 kg/m2 Bod y Mass Index (Ratio) BP Diastolic 72 mm[Hg] blood pressu re, diastolic BP Systolic 137 mm[Hg] blood pressur e, systolic BSA (Body Surface Area) 1.75 b dru surface area Heart Rate 103 /min pulse rate Height 65 [in_us] height E&M Height 165.1 cm height in cent imeters E&M Weight Measured 147.0 [lb_av] weight E& M Weight Measured 147.0 [lb_av] weight E& M Weight Measured 66.82 kg weight in kilograms E&M Body Temperature 98.2 [degF] temperat ure E&M Body Temperature 36.78 Juanita temperat ure in centigrade E&M Immunizations No information available. Advance Directives No information available.
[2025-01-31 11:39] LABS: Hematocrit 40.7 % (37.0-47.0); Hemoglobin 14.1 g/dL (12.2-16.2); Mean Corpuscular HGB Conc 34.6 g/dL (31.8-35.4); Mean Corpuscular Hemoglobin 30.8 pg (27.0-31.2); Mean Corpuscular Volume 88.9 fl (81-99); Platelet Count 338 K/mm3 (142-424); Red Blood Count 4.58 M/mm3 (4.20-5.40); White Blood Count 7.4 K/mm3 (4.8-10.8)
[2025-01-31 11:43] LABS: Chloride 106 mmol/L (98-107)
[2025-01-31 11:44] LABS: Potassium 3.9 mmoL/L (3.5-5.1); Sodium 138 mmol/L (136-145)
[2025-01-31 11:47] LABS: Anion Gap 9.9 mEq/L (5-15); Blood Urea Nitrogen 6 mg/dl (7-17); Calcium 9.0 mg/dl (8.4-10.2); Carbon Dioxide 26 mmol/L (22.0-30.0); Creatinine Clearance Estimated 121 mL/min (50-200); Creatinine,Serum 0.60 mg/dl (0.52-1.04); Estimated Glomerular Filt Rate 113 ml/min (>60); GFR (African American) 137 ML/MIN (>60); Glucose 96 mg/dl (74-100)
[2025-01-31 12:44] LABS: RBC Morphology Normal; Total Cells Counted 100
[2025-01-31 12:58] LABS: Urine Pregnancy, HCG Qual. Negative (Negative)
== END 2025-01-31 23:59 | disposition home or self-care (01) ==
LOC: PREOP 10:49
PROVIDERS: Visit Provider Surgery
DX: Z01.812 Encounter for preprocedural laboratory examination (principal)
CPT/HCPCS: 80048; 81025; 85007; 85014; 85018; 85048; 85049

== ENCOUNTER 2025-02-08 06:11 | Day surgery (SDC) | payer MEDICAID, SELFPAY ==
[2025-02-08] VITALS (13 sets, daily range): BP systolic 96–141; BP diastolic 62–108; PULSE 70–81; RESP 14–18; TEMP 36.4–43; O2SAT 91–99; BMI 21.6
[2025-02-08] MEDS: 0.9 % SODIUM CHLORIDE 1000ML 1,000 ML 25 ML IV (06:29)
--- NOTE | 2025-02-08 06:41 | EXP.GEN.HP ---
HPI HPI HPI: The patient presents for umbilical hernia repair. No changes to her overall health or history since prior evaluations in the office. Forwarded from prior office visit dated November 29, 2024 and January 03, 2025: This is a 34-year-old female seen in consultation from her primary care provider for evaluation regarding recurrent umbilical hernia. She states that she has a history of double umbilical hernia repair approximately 3 to 5 years ago at an outside facility. Over the past few months she has noticed increasing periumbilical pain. Ultrasound dated July of this year reviewed. Small umbilical hernias (x 2) noted. CBC dated September 20, 2024 reviewed. WBC, hemoglobin, and platelet count normal. CMP dated September 20, 2024 reviewed. Potassium, creatinine, and LFTs normal. Operative report dated November 18, 2021 from [facility] obtained. The patient underwent primary repair of a 0.5 cm umbilical defect with interrupted 0 PDS. She underwent primary repair of a 1 cm epigastric defect with interrupted 0 PDS. PFSH PFSH Disclaimer: The information contained in this section may have been updated after the patient was seen, as this information can be updated by other users. Medical History Shingles IBS (irritable bowel syndrome) Depressed Anxiety IgA deficiency Surgical History History of lithotripsy History of D&C History of carpal tunnel release History of hernia repair History of tooth extraction History of tonsillectomy Family History Family history of heart disease Family history of cancer Social History Smoking Status: Current every day smoker tobacco type: cigarettes packs per day: 1 years smoked: 21 quit status: has quit before alcohol intake: never substance use type: painkillers counseling given: No counseling provided: treatment program current occupational status: unemployed Travel in the last 8 weeks?: None number of children: 2 Have you lived/traveled outside [place] in past 30 days?: No Contact w/someone who lives/traveled outside US past 30 days?: No Exposure to someone with infectious disease in past 14 days?: No Do you have a fever (greater than 100.4 F or 38 C)?: No Have you tested positive for COVID-19?: No Exposed to someone with COVID-19 in past 14 days?: No Do you have a sore throat?: No Do you have a cough?: No Do you have any weakness?: No Do you have any diarrhea?: No Are you experiencing any unusual bleeding?: No Do you have any muscle aches/pain?: No Do you have any abdominal pain?: No Are you experiencing loss of taste or smell?: No Other Medical History Have you received the Pneumonia Vaccine: No Meds Home Medications and Allergies Home Medications ?Medication ?Instructions ?Recorded ?Confirmed ?Type buprenorphine 8 mg-naloxone 2 mg 1 tab sublingual DAILY 09/20/24 02/08/25 History sublingual tablet bupropion HCl 150 mg 24 hr tablet, 150 mg PO DAILY #30 tabs 01/25/25 02/08/25 Rx extended release (Wellbutrin XL) New Prescriptions to Start Prescriptions: Allergies Allergy/AdvReac Type Severity Reaction Status Date / Time ibuprofen Allergy Mild Other Verified 02/08/25 06:39 Exam Data for Last 24 hours I & O for Last 24 hours: Intake & Output 02/05/25 02/06/25 02/07/25 02/08/25 11:59 11:59 11:59 11:59 Weight 130 lb Constitutional Constitutional: no acute distress *Routine HEENT Exam Head: Present normocephalic Eye: Present EOMI ENT: Present mucous membranes moist *Routine Neck Exam Neck: Present full ROM *Routine Respiratory Exam Respiratory: Absent respiratory distress *Routine Cardiovascular Exam Cardiovascular: Absent tachycardia *Routine Abdominal Exam Abdominal: Present soft *Routine Rectal Exam Rectal:: deferred *Routine Genitalia Exam Genitalia:: deferred *Routine Extremities Exam Extremities: Present full ROM *Routine Skin Exam Skin: Absent erythema *Routine Neurological Exam Neurological: Present alert Assessment and Plan *Assessment and plan (1) Umbilical hernia: Status: Acute Qualifiers: Obstruction and gangrene presence: without obstruction or gangrene Qualified Code(s): K42.9 - Umbilical hernia without obstruction or gangrene Category: Medical Code(s): K42.9 - Umbilical hernia without obstruction or gangrene (2) H/O umbilical hernia repair: Status: Acute Category: Surgical Code(s): Z98.890 - Other specified postprocedural states; Z87.19 - Personal history of other diseases of the digestive system Plan Laparoscopic or open repair of recurrent umbilical hernia I have discussed the risks and benefits including, but not limited to: Bleeding Infection Damage to surrounding tissue Inherent risks of sedation The patient agrees to proceed.
[2025-02-08 06:42] LABS: Urine Pregnancy, HCG Qual. Negative (Negative)
--- NOTE | 2025-02-08 06:56 | EXP.OP.NOTE ---
Date of procedure: 02/08/25 Pre-op Diagnosis:: Recurrent periumbilical hernia Post-op Diagnosis:: Recurrent periumbilical hernia Procedure performed:: Laparoscopic-assisted open repair of recurrent periumbilical hernia (primary repair without mesh) Surgeon:: Scooby Herrera MD Anesthesia: GETNegrita Estimated blood loss (mL): 15 Operative findings:: Adjacent 5 mm defect with incarcerated preperitoneal fat just above into the right of the umbilicus Operative note:: After informed consent was obtained the patient was taken to the operating room and placed in the supine position. General anesthesia was induced and her abdomen was prepped and draped in a sterile fashion. After infiltration with local anesthetic a Veress needle was placed in the left upper quadrant. The abdomen was insufflated. A 5 mm optical trocar was placed along the left flank after infiltration with local anesthetic. Visualization revealed no obvious fascial defect and no incarcerated omentum. Palpation confirmed nodularity consistent with incarcerated preperitoneal fat just above into the right of the umbilicus. A transverse incision was made overlying the defects. The adjacent lobules consistent with preperitoneal fat were excised with electrocautery. Adjacent 5 mm defects were then noted. Both defects were closed separately with interrupted 0 Ethibond. Pneumoperitoneum was released as the trocar was removed. All wounds were irrigated and skin was closed with 4-0 Monocryl in a subcuticular manner. Dressings were applied and the patient was transferred to recovery in stable condition. Condition: stable Disposition: PACU Specimens:: None Complications:: No immediate
--- NOTE | 2025-02-08 07:04 | EXP.ANES.CKL ---
[facility] Disclaimer: The information contained in this section may have been updated after the patient was seen, as this information can be updated by other users. Medical History Shingles IBS (irritable bowel syndrome) Depressed Anxiety IgA deficiency Surgical History History of lithotripsy History of D&C History of carpal tunnel release History of hernia repair History of tooth extraction History of tonsillectomy Family History Other Family history of cancer Family history of heart disease Social History Smoking Status: Current every day smoker tobacco type: cigarettes packs per day: 1 years smoked: 21 quit status: has quit before alcohol intake: never substance use type: painkillers counseling given: No counseling provided: treatment program current occupational status: unemployed Travel in the last 8 weeks?: None number of children: 2 Have you lived/traveled outside US in past 30 days?: No Contact w/someone who lives/traveled outside US past 30 days?: No Exposure to someone with infectious disease in past 14 days?: No Do you have a fever (greater than 100.4 F or 38 C)?: No Have you tested positive for COVID-19?: No Exposed to someone with COVID-19 in past 14 days?: No Do you have a sore throat?: No Do you have a cough?: No Do you have any weakness?: No Do you have any diarrhea?: No Are you experiencing any unusual bleeding?: No Do you have any muscle aches/pain?: No Do you have any abdominal pain?: No Are you experiencing loss of taste or smell?: No [facility] Anesthesia Checklist Patient Identification Patient Identification: Arm Band and Verbal (Name & ) Structural Data Admitted From: Home Planned Operative Procedure/s: umbicial hernia Consent for Planned Operative Procedure(s) Verified: Yes Verified Documents: Surgical Consent and History and Physical NPO Status Verified Time NPO: 00:00 Additional verifications Patient : No Anesthesia Reactions: No Hx Blood Transfusions: No Blood Transfusion Reaction: No Airway Assessment Mallampati Score:: Class I Dentition: Edentulous Neurological Assessment Level of Consciousness: Awake, Alert and Appropriate Hx Seizures: No Numbness or tingling in extremities: No Anesthesia Plan Anesthesia Risk discussed: Yes Anesthesia Plan: Verified ASA Class: II Anesthesia Type: General
[2025-02-08] MEDS: CEFAZOLIN SODIUM 1GM ADV 1 GM IV (07:15)
[2025-02-08] MEDS: SODIUM CHLORIDE IRRIG SOLUTION 3,000 ML 100 ML IR (07:32)
[2025-02-08] MEDS: LIDOCAINE 1% 20ML MDV 20 ML (07:38)
--- NOTE | 2025-02-08 08:23 | EXP.ANES.I ---
[facility] Anesthesia Record Part I Anesthesia Record I Intake, IV Amount: 800 Hydration: Adequate Estimated blood loss (mL): 15 Urine output (mL): 0 Blood Pressure: 141/103 SaO2: 91 Pulse Rate: 81 Airway Patency: Patent Respiratory Rate: 18 Temperature: 97.8 F Patient is:: Drowsy and Stable Stable to PACU at:: 08:15
[2025-02-08] MEDS: MORPHINE 2MG/ML SYRINGE 2 MG IV (08:33)
[2025-02-08] MEDS: HYDROMORPHONE 2MG/ML SYRINGE 0.5 MG IV (08:53)
--- NOTE | 2025-02-09 10:46 | P.PNANES_ITS ---
[facility] Anesthesia Record Part II Anesthesia Record Part II Discharge Time: 09:05 Destination: Surgical Day Care (OP Surgery) PACU nurse assessment reviewed?: Yes Patient Condition:: Good Anesthesia Complications:: None Swallowing reflex intact?: Yes Airway Patency: Patent Cyanosis?: No Blood Pressure: 117/76 SaO2: 99 Respiratory Rate: 18 Pulse Rate: 72 Temperature: 97.8 F Mental Status: Alert & Oriented Pain level:: 0 Nausea and/or vomitting:: None Intake, IV Amount: 0 Hydration: Adequate
[2025-02-09 10:47] VITALS: BP 117/76; PULSE 72; RESP 18; TEMP 36.6; O2SAT 99
== END 2025-02-08 10:26 | disposition home or self-care (01) ==
PROVIDERS: PCP Family Medicine; Visit Provider Surgery
PROC: 0WQF4ZZ Repair Abdominal Wall, Percutaneous Endoscopic Approach (ICD-10-PCS; CPT 49616; principal; 2025-02-08 07:30)
DX: K42.0 Umbilical hernia with obstruction, without gangrene (principal); F17.210 Nicotine dependence, cigarettes, uncomplicated; F32.A Depression, unspecified; Z88.6 Allergy status to analgesic agent; Z98.890 Other specified postprocedural states; Z87.19 Personal history of other diseases of the digestive system
CPT/HCPCS: 49616; 81025; 96374; J0690; J1100; J1171; J2003; J2250; J2270; J2405; J2704; J3010; J7030; J7120